=== PATIENT | male | born 1990 | race Caucasian/White ===

== ENCOUNTER 2016-12-30 13:19 | Emergency (ER) | payer SELFPAY ==
--- NOTE | 2016-12-30 23:56 | ED Physician Chart ---
Chief Complaint/HPI - Patient Information Chief Complaint:: patient left without being seen. ED Septic Shock - . Is Septic Shock (SBP<90, OR Lactate>4 mmol\L) present?: No Reassessment (Disposition) - Reassessment Reassessment Condition:: Unchanged - Diagnosis Diagnosis:: The patient changed his mind about being seen prior to my seeing him. Patient left without being seen. - Patient Disposition Discharge/Transfer:: [facility] ED Discharge Plan - Patient Disposition Admit/Discharge/Transfer: Other Condition at Disposition: Stable
== END 2016-12-30 13:22 | disposition short-term general hospital (02) ==
LOC: ER 13:19
DX: R10.9 Unspecified abdominal pain (principal)